=== PATIENT | male | born 1980 | race Caucasian/White ===

== ENCOUNTER 2024-09-27 18:14 | Emergency (ER) | payer MEDICAID ==
[~2024-09-27] VITALS: Ht 170.2 cm; Wt 95.3 kg
[2024-09-27] MEDS ORDERED: ONDANSETRON 4 MG/2 ML VIAL ONE (19:15)
[2024-09-27] MEDS ORDERED: HYDROMORPHONE 1 MG/1 ML DISP.SYRIN ONE ×2 (19:15→20:14)
[2024-09-27] MEDS ORDERED: KETOROLAC TROMETHAMINE 15 MG INJ ONE (19:15)
[2024-09-27] MEDS: HYDROMORPHONE 1 MG/1 ML DISP.SYRIN IV ONE ×2 (19:35→20:28)
[2024-09-27] MEDS: ONDANSETRON 4 MG/2 ML VIAL IV ONE (19:36)
[2024-09-27] MEDS: KETOROLAC TROMETHAMINE 15 MG INJ IVP ONE (19:36)
[2024-09-27] MEDS: IV NORMAL SALINE 1000 ML BAG IV ONE (19:36)
[2024-09-27 19:40] LABS: BASOPHILS # (AUTO) 0.1 K/UL (0.0-0.2); BASOPHILS % (AUTO) 0.3 % (0.0-2.0); EOSINOPHILS # (AUTO) 0.1 K/uL (0.0-0.7); EOSINOPHILS % (AUTO) 0.3 % (0.0-7.0); HEMATOCRIT 49.9 % (36.7-47.1); HEMOGLOBIN 16.7 g/dL (12.5-16.3); LYMPHOCYTES # (AUTO) 1.8 K/uL (0.8-4.8); LYMPHOCYTES % (AUTO) 7.7 % (20.5-51.5); MEAN CORPUSCULAR HEMOGLOBIN 30.7 uug (23.8-33.4); MEAN CORPUSCULAR HGB CONC 34 g/dL (32.5-36.3); MEAN CORPUSCULAR VOLUME 91.6 fL (73.0-96.2); MONOCYTES # (AUTO) 1.3 K/uL (0.1-1.30); MONOCYTES % (AUTO) 5.6 % (0.0-11.0); NEUTROPHILS # (AUTO) 20.5 K/uL (1.8-8.9); NEUTROPHILS % (AUTO) 86.1 % (38.5-71.5); PLATELET COUNT (AUTO) 311 K/uL (152-348); RED BLOOD CELL COUNT(AUTO) 5.45 MIL/uL (4.06-5.63); RED CELL DISTRIBUTION WIDTH 13.9 % (12.1-16.2); WHITE BLOOD COUNT (AUTO) 23.8 K/uL (3.6-10.2)
[2024-09-27 19:47] LABS: DIFFERENTIAL COMMENT 1
[2024-09-27 19:57] LABS: ALBUMIN 4.3 g/dL (3.4-5.0); BILIRUBIN,DIRECT 0.2 mg/dL (0.0-0.2); BILIRUBIN,TOTAL 1.3 mg/dL (0.2-1.0); CALCIUM 9.5 mg/dL (8.5-10.1); CREATININE 1.3 mg/dL (0.6-1.3); POTASSIUM 4.2 mmol/L (3.5-5.1); TOTAL PROTEIN, SERUM 8.1 g/dL (6.4-8.2)
[2024-09-27] MEDS ORDERED: DOXYCYCLINE HYCLATE 100 MG TABLET ONE (20:13)
[2024-09-27] MEDS ORDERED: CEFTRIAXONE /D5W 50ML IVPB **ER PYXIS IV ONE (20:13)
[2024-09-27] MEDS ORDERED: HYDR-3980 PO (20:16)
[2024-09-27] MEDS ORDERED: DOXY-326 PO (20:16)
[2024-09-27] MEDS ORDERED: CEFI400C4 PO (20:16)
[2024-09-27] MEDS ORDERED: ONDA4TAB11 PO (20:16)
[2024-09-27 20:25] LABS: *BILIRUBIN,URIN NEGATIVE (NEGATIVE); *CLARITY,URINE CLEAR (CLEAR); *COLOR,URINE YELLOW (YELLOW); *KETONES,URINE NEGATIVE (NEGATIVE); *PROTEIN,URINE TRACE (NEGATIVE); *UROBILINOGEN,URINE 0.2 E.U./dl (NORMAL); LEUKOCYTE ESTERASE ,URINE 3+ (NEGATIVE); NITRITE, URINE POSITIVE (NEGATIVE); UGLUCOSE NEGATIVE (NEGATIVE)
[2024-09-27] MEDS: DOXYCYCLINE HYCLATE 100 MG TABLET PO ONE (20:27)
[2024-09-27] MEDS: CEFTRIAXONE 1 G in IV DEXTROSE 5% 50 ML IV ONE (20:27)
[2024-09-27 20:28] LABS: *BLOOD, URINE TRACE (NEGATIVE)
[2024-09-27 20:42] LABS: BACTERIA,URINE MANY /HPF (NONE SEEN); SQUAMOUS EPITHELIAL CELL,UR FEW /HPF (NONE SEEN); WBC,URINE 80-100 /HPF (0-3)
[2024-09-27 21:26] VITALS: BP 128/77; O2SAT 98
== END 2024-09-27 21:01 | disposition home or self-care (01) ==
LOC: ER 18:14
DX: N45.3 Epididymo-orchitis (principal); M10.9 Gout, unspecified; N50.811 Right testicular pain
CPT/HCPCS: 99285; 74176; 96365; 96375; 96361; 80076; 80048; 81001; 83690; 85025; 87086; 36415; 76870; 96376; J1885; J1171 ×2; J0696; J2405; J7040; A4606; A4663